=== PATIENT | male | born 1945 | race Caucasian/White ===

== ENCOUNTER 2017-11-15 00:13 | Observation (INO) | payer MEDICARE, OTHER ==
[2017-11-15] MEDS ORDERED: NS 0.9% 1000 ML*IV.FLUID IV ONE (00:27)
[2017-11-15 01:08] LABS: Urine Appearance Clear; Urine Blood 3+ (Negative); Urine Color Yellow; Urine Ketones Negative (Negative); Urine Protein 2+(100 mg/dL) (Negative); Urine Specific Gravity 1.031 (1.010-1.030); Urine Urobilinogen Negative (Negative)
[2017-11-15 01:14] LABS: ABS Basophils 0 10^3/ul (0-0.2); ABS Eosinophils 0 10^3/ul (0-0.6); ABS Lymphocytes 0.3 10^3/ul (1.0-4.8); ABS Monocytes 0.7 10^3/ul (0-0.8); ABS Neutrophils 6.5 10^3/ul (1.5-7.7); ABS Nucleated RBC 0 10^3/ul; Eosinophil % 0 % (0-6); Hematocrit 42 % (42-52); Lymphocyte % 3.5 % (25-47); Mean Corpuscular HGB Conc 36 g/dl (31-36); Mean Corpuscular Hemoglobin 31 pg (27-31); Mean Corpuscular Volume 88 fL (80-94); Mean Platelet Volume 6.7 um3 (7.4-10.4); Nucleated Red Blood Cells % 0.1; Platelet Count 160 10^3/ul (150-450); Red Cell Distribution Width 14 % (10.5-15); White Blood Count 7.5 10^3/ul (3.5-10.8)
[2017-11-15 01:24] LABS: INR 1.1 (0.77-1.02)
[2017-11-15 01:33] LABS: EGFR Non-African American 62.3 (>60)
[2017-11-15] MEDS ORDERED: Ketorolac INJ* 30 MG/ML 1 ML VIAL IV PUSH ONE (01:37)
[2017-11-15] MEDS ORDERED: Acetaminophen TAB* 325 MG PO ONE (01:38)
[2017-11-15] MEDS ORDERED: Piperacillin/Tazobac ADVAN(*) 3.375 GM in NS 0.9% 100 ML* 100 ML IVPB ONE (01:38)
[2017-11-15] MEDS ORDERED: Levofloxacin 750 MG IVPREMIX(* 750 MG/150 ML BAG IVPB ONE (01:38)
--- NOTE | 2017-11-15 03:56 | ED ---
Deja Castle Jade, scribed for Luc Anthony MD on 11/15/17 at 0145 . HPI Febrile Illness - HPI Summary HPI Summary: Pt is a 72 y/o male who presents to the ED c/o febrile illness. As per , pt had a high fever of 103 degrees, has SOB while sleeping, and is delirius. He had a CT scan w/ contrast today, and became jittery 3 hours later. Pt also complains of chills, weakness, and neck pain with movement. He denies any dysuria, sore throat, or runny nose. Pt has a PMHx of HTN and colon cancer, but denies any DM. - History of Current Complaint Chief Complaint: EDFever Time Seen by Provider: 11/15/17 01:17 Hx Obtained From: Patient, Family/Chef Concierge - Onset/Duration: Still Present Timing: Constant Current Severity: None Pain Intensity: 0 Pain Scale Used: 0-10 Numeric Aggravating Factors: Nothing Alleviating Factors: Nothing Associated Signs and Symptoms: Altered Mental Status, Myalgia - Neck pain, Recent Surgery - partial colectomy, SOB - Allergy/Home Medications Allergies/Adverse Reactions: Allergies Allergy/AdvReac Type Severity Reaction Status Date / Time No Known Allergies Allergy Verified 11/15/17 00:17 PMH/Surg Hx/FS Hx/Imm Hx Endocrine/Hematology History: Denies: Hx Diabetes Cardiovascular History: Reports: Hx Hypertension - Cancer History Cancer Type, Location and Year: Colon cancer Infectious Disease History: No Infectious Disease History: Denies: Traveled Outside the [place] in Last 30 Days - Family History Known Family History: Positive: Cardiac Disease - [place] - Social History Alcohol Use: Occasionally Substance Use Type: Reports: None Smoking Status (MU): Former Smoker Review of Systems Positive: Fever, Chills, Other - Delirius, generalized weakness Negative: Sore Throat, Nasal Discharge Positive: Shortness Of Breath Negative: dysuria Positive: Other - Pain in back of neck with movement All Other Systems Reviewed And Are Negative: Yes Physical Exam - Summary Physical Exam Summary: Appearance: Well appearing, no pain distress Skin: reflects adequate perfusion, hot and flushed Head/face: normal Eyes: EOMI, TANK ENT: normal Neck: supple, non-tender Respiratory: breath sounds present, fine crackles in left base, no wheezes Cardiovascular: pulses symmetrical, tachycardic but regular rhythm Abdomen: non-tender, soft. Midline surgical scar Bowel Sounds: present Musculoskeletal: normal, strength/ROM intact Neuro: normal, sensory motor intact, A&Ox3 Triage Information Reviewed: Yes Vital Signs On Initial Exam: Initial Vitals Temp Pulse Resp BP Pulse Ox 103.8 F 114 18 166/88 96 11/15/17 00:14 11/15/17 00:14 11/15/17 00:14 11/15/17 00:14 11/15/17 00:14 Vital Signs Reviewed: Yes Diagnostics - Vital Signs Vital Signs Temp Pulse Resp BP Pulse Ox 11/15/17 01:00 99 96 11/15/17 00:57 102 176/83 97 11/15/17 00:33 103 F 11/15/17 00:29 108 184/95 93 11/15/17 00:27 109 196/118 93 11/15/17 00:14 103.8 F 114 18 166/88 96 - Laboratory Lab Results: Lab Results 11/15/17 11/15/17 11/15/17 Range/Units 00:48 00:48 00:48 WBC 7.5 (3.5-10.8) 10^3/ul RBC 4.80 (4.00-5.40) 10^6/ul Hgb 15.0 (14.0-18.0) g/dl Hct 42 (42-52) % MCV 88 (80-94) fL MCH 31 (27-31) pg MCHC 36 (31-36) g/dl RDW 14 (10.5-15) % Plt Count 160 (150-450) 10^3/ul MPV 6.7 L (7.4-10.4) um3 Neut % (Auto) 86.7 H (38-83) % Lymph % (Auto) 3.5 L (25-47) % [place] % (Auto) 9.5 H (0-7) % Eos % (Auto) 0 (0-6) % Baso % (Auto) 0.3 (0-2) % Absolute Neuts (auto) 6.5 (1.5-7.7) 10^3/ul Absolute Lymphs (auto) 0.3 L (1.0-4.8) 10^3/ul Absolute Monos (auto) 0.7 (0-0.8) 10^3/ul Absolute Eos (auto) 0 (0-0.6) 10^3/ul Absolute Basos (auto) 0 (0-0.2) 10^3/ul Absolute Nucleated RBC 0 10^3/ul Nucleated RBC % 0.1 INR (Anticoag Therapy) 1.10 H (0.77-1.02) APTT 30.4 (26.0-36.3) seconds Sodium 137 (135-145) mmol/L Potassium 3.9 (3.5-5.0) mmol/L Chloride 103 (101-111) mmol/L Carbon Dioxide 24 (22-32) mmol/L Anion Gap 10 (2-11) mmol/L BUN 25 H (6-24) mg/dL Creatinine 1.15 (0.67-1.17) mg/dL Est GFR ( Amer) 75.4 (>60) Est GFR (Non-Af Amer) 62.3 (>60) BUN/Creatinine Ratio 21.7 H (8-20) Glucose 120 H (70-100) mg/dL Lactic Acid (0.5-2.0) mmol/L Calcium 9.1 (8.6-10.3) mg/dL Total Bilirubin 0.80 (0.2-1.0) mg/dL AST 24 (13-39) U/L ALT 20 (7-52) U/L Alkaline Phosphatase 129 H (34-104) U/L Troponin I Pending C-Reactive Protein 48.48 H (<8.01) mg/L Total Protein 6.7 (6.4-8.9) g/dL Albumin 4.0 (3.2-5.2) g/dL Globulin 2.7 (2-4) g/dL Albumin/Globulin Ratio 1.5 (1-3) Urine Color Urine Appearance Urine pH (5-9) Ur Specific [place] (1.010-1.030) Urine Protein (Negative) Urine Ketones (Negative) Urine Blood (Negative) Urine Nitrate (Negative) Urine Bilirubin (Negative) Urine Urobilinogen (Negative) Ur Leukocyte Esterase (Negative) Urine WBC (Auto) (Absent) Urine RBC (Auto) (Absent) Ur Squamous Epith Cells (Absent) Urine Bacteria (Absent) Urine Glucose (Negative) 06/28/18 06/28/18 Range/Units 00:48 00:50 WBC (3.5-10.8) 10^3/ul RBC (4.00-5.40) 10^6/ul Hgb (14.0-18.0) g/dl Hct (42-52) % MCV (80-94) fL MCH (27-31) pg MCHC (31-36) g/dl RDW (10.5-15) % Plt Count (150-450) 10^3/ul MPV (7.4-10.4) um3 Neut % (Auto) (38-83) % Lymph % (Auto) (25-47) % [place] % (Auto) (0-7) % Eos % (Auto) (0-6) % Baso % (Auto) (0-2) % Absolute Neuts (auto) (1.5-7.7) 10^3/ul Absolute Lymphs (auto) (1.0-4.8) 10^3/ul Absolute Monos (auto) (0-0.8) 10^3/ul Absolute Eos (auto) (0-0.6) 10^3/ul Absolute Basos (auto) (0-0.2) 10^3/ul Absolute Nucleated RBC 10^3/ul Nucleated RBC % INR (Anticoag Therapy) (0.77-1.02) APTT (26.0-36.3) seconds Sodium (135-145) mmol/L Potassium (3.5-5.0) mmol/L Chloride (101-111) mmol/L Carbon Dioxide (22-32) mmol/L Anion Gap (2-11) mmol/L BUN (6-24) mg/dL Creatinine (0.67-1.17) mg/dL Est GFR ( Amer) (>60) Est GFR (Non-Af Amer) (>60) BUN/Creatinine Ratio (8-20) Glucose (70-100) mg/dL Lactic Acid 1.4 (0.5-2.0) mmol/L Calcium (8.6-10.3) mg/dL Total Bilirubin (0.2-1.0) mg/dL AST (13-39) U/L ALT (7-52) U/L Alkaline Phosphatase (34-104) U/L Troponin I C-Reactive Protein (<8.01) mg/L Total Protein (6.4-8.9) g/dL Albumin (3.2-5.2) g/dL Globulin (2-4) g/dL Albumin/Globulin Ratio (1-3) Urine Color Yellow Urine Appearance Clear Urine pH 5.0 (5-9) Ur Specific [place] 1.031 H (1.010-1.030) Urine Protein 2+(100 mg/dl) A (Negative) Urine Ketones Negative (Negative) Urine Blood 3+ A (Negative) Urine Nitrate Negative (Negative) Urine Bilirubin Negative (Negative) Urine Urobilinogen Negative (Negative) Ur Leukocyte Esterase Negative (Negative) Urine WBC (Auto) Trace(0-5/hpf) (Absent) Urine RBC (Auto) 3+(>10/hpf) A (Absent) Ur Squamous Epith Cells Present A (Absent) Urine Bacteria Absent (Absent) Urine Glucose Negative (Negative) Result Diagrams: 11/15/17 00:48 11/15/17 00:48 Lab Statement: Any lab studies that have been ordered have been reviewed, and results considered in the medical decision making process. - Radiology CXR Xray Interpretation: Positive (See Comments) - Left basilar infiltrate. Pending offical radiology report. Radiology Interpretation Completed By: ED Physician - EKG 00:28 Cardiac Rate: Tachycardia - 105 bpm EKG Rhythm: Sinus Rhythm ST Segment: Non-Specific - With minimal depression V4-V6 Ectopy: PACs Course/Dx - Course Course Of Treatment: Patient with high fever developed throughout the day today and mild cough. Infiltrate on x-ray. WBC is nonelevated. CRP is elevated. Double antibiotics, IV fluids and consult placed a hospitalist. Hospitalist evaluated in the ER and will admit. Patient improving through stay. - Diagnoses Provider Diagnoses: Sepsis, Left lower lobe pneumonia, Delirium - Critical Care Time Critical Care Time: 30-74 min - Critical care time is exclusive of separately billable procedures Discharge - Sign-Out/Discharge Documenting (check all that apply): Discharge/Admit/Transfer - Admit - Discharge Plan Condition: Fair Disposition: ADMITTED TO [facility] Referrals: Erica Kaur MD [Primary Care Provider] - - Billing Disposition and Condition Condition: FAIR Disposition: Admitted to [facility] The documentation as recorded by the Deja alex Jade accurately reflects the service I personally performed and the decisions made by me, Luc Anthony MD.
[2017-11-15 05:11] LABS: RBC Parasite Smear No Parasites Seen (No Parasite)
--- NOTE | 2017-11-15 06:49 | HP ---
H&P (Free Text) History and Physical: PCP: Nathaniel Kaur MD Date/Time: 11/15/2017 0411 CC: fever HPI: Mr Andrea is a 72YO male HX stg IIa colon CA & HTN who went to [facility] yesterday AM for his initial 6month surveillance CTs. Upon returning home he developed generalized myalgias, sweats, mild SOB, and spiked a temperature of 103F associated with intermittent confusion which resolved with defervescence. He reports a mild dry cough for the past week associated with light wheezing. Today he has also had some mild nausea without emesis, a mildly unsteady gait, and some light-headedness, but no diarrhea, chest pain, abdominal pain, or other issues. He has had a headache with is unusual for him, but no change in pain with nuchal mobility. Of note, he & his returned from [facility] ~5 weeks ago. He has had no known sick contacts. 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 Father passed at 89 w/ prostate CA. ROS: as above, otherwise reviewed and all were negative vitals: Vital Signs Temp 37.6 C 11/15/17 06:22 Pulse 87 11/15/17 06:22 Resp 17 11/15/17 06:22 BP 166/81 11/15/17 06:22 Pulse Ox 100 11/15/17 06:22 Intake & Output 11/14/17 11/14/17 11/15/17 11:59 23:59 11:59 Intake Total 3580 Output Total 0 Balance 3580 Weight 111.13 kg Intake: IV Fluids 3580 Oral 0 Output: Urine 0 Other: # Bowel Movements 0 Constitutional: NAD, normally developed, obese white male HEENM: atraumatic; sclera/conjunctiva: anicteric/moderate OU conjunctival injection; hearing: clinically intact; oropharynx: clear, mucosa moist Neck: soft tissue: no nuchal rigidity; thyroid: normal Pulmonary: clear to auscultation bilaterally, good aeration, no accessory muscle use CV: RR/RR, normal S1S2, no carotid bruit, no jugular venous distention, 2+ B DP/ PT, no edema Abdominal: soft, non-distended, non-tender, no rebound/guarding/rigidity, normoactive bowel sounds, no hepatosplenomegaly or masses, no costovertebral angle tenderness Musculoskeletal: general: grossly intact, non-tender Integumental: normal appearance and texture of exposed skin Psychiatric orientation: AA&O to PPS affect: calm mood: cooperative, pleasant eye contact: good content: reliable responses: timely insight: good Testing: Lab Results 11/15/17 11/15/17 11/15/17 Range/Units 00:48 00:48 00:48 WBC 7.5 (3.5-10.8) 10^3/ul RBC 4.80 (4.00-5.40) 10^6/ul Hgb 15.0 (14.0-18.0) g/dl Hct 42 (42-52) % MCV 88 (80-94) fL MCH 31 (27-31) pg MCHC 36 (31-36) g/dl RDW 14 (10.5-15) % Plt Count 160 (150-450) 10^3/ul MPV 6.7 L (7.4-10.4) um3 Neut % (Auto) 86.7 H (38-83) % Lymph % (Auto) 3.5 L (25-47) % [place] % (Auto) 9.5 H (0-7) % Eos % (Auto) 0 (0-6) % Baso % (Auto) 0.3 (0-2) % Absolute Neuts (auto) 6.5 (1.5-7.7) 10^3/ul Absolute Lymphs (auto) 0.3 L (1.0-4.8) 10^3/ul Absolute Monos (auto) 0.7 (0-0.8) 10^3/ul Absolute Eos (auto) 0 (0-0.6) 10^3/ul Absolute Basos (auto) 0 (0-0.2) 10^3/ul Absolute Nucleated RBC 0 10^3/ul Nucleated RBC % 0.1 INR (Anticoag Therapy) 1.10 H (0.77-1.02) APTT 30.4 (26.0-36.3) seconds Sodium 137 (135-145) mmol/L Potassium 3.9 (3.5-5.0) mmol/L Chloride 103 (101-111) mmol/L Carbon Dioxide 24 (22-32) mmol/L Anion Gap 10 (2-11) mmol/L BUN 25 H (6-24) mg/dL Creatinine 1.15 (0.67-1.17) mg/dL Est GFR ( Amer) 75.4 (>60) Est GFR (Non-Af Amer) 62.3 (>60) BUN/Creatinine Ratio 21.7 H (8-20) Glucose 120 H (70-100) mg/dL Lactic Acid (0.5-2.0) mmol/L Calcium 9.1 (8.6-10.3) mg/dL Total Bilirubin 0.80 (0.2-1.0) mg/dL AST 24 (13-39) U/L ALT 20 (7-52) U/L Alkaline Phosphatase 129 H (34-104) U/L Troponin I 0.03 (<0.04) ng/mL C-Reactive Protein 48.48 H (<8.01) mg/L Total Protein 6.7 (6.4-8.9) g/dL Albumin 4.0 (3.2-5.2) g/dL Globulin 2.7 (2-4) g/dL Albumin/Globulin Ratio 1.5 (1-3) Urine Color Urine Appearance Urine pH (5-9) Ur Specific [place] (1.010-1.030) Urine Protein (Negative) Urine Ketones (Negative) Urine Blood (Negative) Urine Nitrate (Negative) Urine Bilirubin (Negative) Urine Urobilinogen (Negative) Ur Leukocyte Esterase (Negative) Urine WBC (Auto) (Absent) Urine RBC (Auto) (Absent) Ur Squamous Epith Cells (Absent) Urine Bacteria (Absent) Urine Glucose (Negative) 11/15/17 11/15/17 Range/Units 00:48 00:50 WBC (3.5-10.8) 10^3/ul RBC (4.00-5.40) 10^6/ul Hgb (14.0-18.0) g/dl Hct (42-52) % MCV (80-94) fL MCH (27-31) pg MCHC (31-36) g/dl RDW (10.5-15) % Plt Count (150-450) 10^3/ul MPV (7.4-10.4) um3 Neut % (Auto) (38-83) % Lymph % (Auto) (25-47) % [place] % (Auto) (0-7) % Eos % (Auto) (0-6) % Baso % (Auto) (0-2) % Absolute Neuts (auto) (1.5-7.7) 10^3/ul Absolute Lymphs (auto) (1.0-4.8) 10^3/ul Absolute Monos (auto) (0-0.8) 10^3/ul Absolute Eos (auto) (0-0.6) 10^3/ul Absolute Basos (auto) (0-0.2) 10^3/ul Absolute Nucleated RBC 10^3/ul Nucleated RBC % INR (Anticoag Therapy) (0.77-1.02) APTT (26.0-36.3) seconds Sodium (135-145) mmol/L Potassium (3.5-5.0) mmol/L Chloride (101-111) mmol/L Carbon Dioxide (22-32) mmol/L Anion Gap (2-11) mmol/L BUN (6-24) mg/dL Creatinine (0.67-1.17) mg/dL Est GFR ( Amer) (>60) Est GFR (Non-Af Amer) (>60) BUN/Creatinine Ratio (8-20) Glucose (70-100) mg/dL Lactic Acid 1.4 (0.5-2.0) mmol/L Calcium (8.6-10.3) mg/dL Total Bilirubin (0.2-1.0) mg/dL AST (13-39) U/L ALT (7-52) U/L Alkaline Phosphatase (34-104) U/L Troponin I (<0.04) ng/mL C-Reactive Protein (<8.01) mg/L Total Protein (6.4-8.9) g/dL Albumin (3.2-5.2) g/dL Globulin (2-4) g/dL Albumin/Globulin Ratio (1-3) Urine Color Yellow Urine Appearance Clear Urine pH 5.0 (5-9) Ur Specific [place] 1.031 H (1.010-1.030) Urine Protein 2+(100 mg/dl) A (Negative) Urine Ketones Negative (Negative) Urine Blood 3+ A (Negative) Urine Nitrate Negative (Negative) Urine Bilirubin Negative (Negative) Urine Urobilinogen Negative (Negative) Ur Leukocyte Esterase Negative (Negative) Urine WBC (Auto) Trace(0-5/hpf) (Absent) Urine RBC (Auto) 3+(>10/hpf) A (Absent) Ur Squamous Epith Cells Present A (Absent) Urine Bacteria Absent (Absent) Urine Glucose Negative (Negative) ECG, personally reviewed: sinus tachycardia rate 105, inverted T-waves w/ mild ST depression V4-6, I; new compared to tracing dated 01/30/2007 CXR, personally reviewed: patchy bibasilar infiltrates, no comparison Impression: 72M HX stg IIa colon CA presents with fever likely 2nd bibasilar pneumonia, but potentially a tropical infection from [facility] DIAGNOSIS & PLAN Primary fever ? bibasilar pneumonia vs tropical infection : peripheral smear for malaria : blood & sputum CXs : given IV piperacillin/tazobactam & levofloxacin in ED, will continue on levofloxacin : consider ID consult in AM : supportive care Secondary colon CA stg IIa : continue outpatient surveillance HX ECG showing "lateral ischemia" : present on today's ECG & asymptomatic : consider discussing with PCP as she is reportedly aware & cleared him colon resection in light of it HTN : monitor hypothroidism : continue levofloxacin OA R knee : continue meloxicam Admission Rational: observation for fever of unknown origin DVTp: SCDs & heparin SQ Code Status: full HCP:
[2017-11-15] MEDS ORDERED: Levothyroxine TAB* 50 MCG TAB PO SCH (07:00)
[2017-11-15] MEDS ORDERED: Acetaminophen TAB* 325 MG PO PRN (07:23)
[2017-11-15] MEDS ORDERED: Albuterol 2.5 MG/3 ML NEB.SOL* (0.083%) INH PRN (07:23)
[2017-11-15] MEDS ORDERED: Melatonin 3 MG TAB PO PRN (07:24)
[2017-11-15] MEDS ORDERED: NS 0.9% 1000 ML* 1,000 ML IV SCH (07:30)
--- NOTE | 2017-11-15 08:10 | RAD ---
INDICATION: Fever COMPARISON: None TECHNIQUE: An AP portable view obtained at 0045 hours is submitted. FINDINGS: Bones/Soft Tissues: There are no acute bony findings. Cardiomediastinal: The cardiomediastinal silhouette is normal. Lungs: There is mild linear change left lung base with elevation left hemidiaphragm. The findings most consistent with atelectasis, less likely developing infiltrate. Suggest follow-up as indicated.. Pleura: There may be a tiny left-sided effusion. Other: None IMPRESSION: Linear change left lung base consistent with atelectasis, less likely infiltrate.
[2017-11-15 08:55] LABS: ABS Basophils 0 10^3/ul (0-0.2); ABS Eosinophils 0 10^3/ul (0-0.6); ABS Lymphocytes 0.4 10^3/ul (1.0-4.8); ABS Monocytes 0.9 10^3/ul (0-0.8); ABS Neutrophils 7.1 10^3/ul (1.5-7.7); ABS Nucleated RBC 0 10^3/ul; Eosinophil % 0 % (0-6); Hematocrit 41 % (42-52); Hemoglobin 14.1 g/dl (14.0-18.0); Lymphocyte % 4.3 % (25-47); Mean Corpuscular HGB Conc 35 g/dl (31-36); Mean Corpuscular Hemoglobin 31 pg (27-31); Mean Corpuscular Volume 89 fL (80-94); Mean Platelet Volume 6.7 um3 (7.4-10.4); Nucleated Red Blood Cells % 0; Platelet Count 143 10^3/ul (150-450); Red Blood Count 4.55 10^6/ul (4.00-5.40); Red Cell Distribution Width 15 % (10.5-15); White Blood Count 8.4 10^3/ul (3.5-10.8)
[2017-11-15] MEDS ORDERED: MELOXICAM 10 MG PO SCH (09:00)
[2017-11-15] MEDS ORDERED: Metoprolol Tartrate TAB* 25 MG PO SCH (09:00)
[2017-11-15] MEDS ORDERED: Docusate CAP* 100 MG PO SCH (09:00)
[2017-11-15 09:04] LABS: INR 1.2 (0.77-1.02)
[2017-11-15 09:05] LABS: EGFR Non-African American 64.3 (>60)
--- NOTE | 2017-11-15 12:39 | CONS ---
CONSULTATION REPORT: DATE OF CONSULT: 11/15/17 REQUESTING PHYSICIAN: Dr. Flores. CONSULTING SERVICE: Infectious Disease. REASON FOR CONSULTATION: Fever. IMPRESSION: 1. Fever, myalgia, headache, came on suddenly last night and included encephalopathy according to the patient's . This morning he is left with some sweats, fever, headache but he and his agree he is back to his baseline mental status. As to a source, his blood cultures are negative at this point, his x-ray is unrevealing, he has no respiratory symptoms. He has no nuchal rigidity or photophobia to suggest meningitis. He has no abdominal symptoms or diarrhea. No rash or lymphadenopathy. He had recently a CT contrast dye exposure, could be an allergic reaction to that, mental status change that is described makes that seem less likely. He could have a tick- borne infection at this time of the year including Lyme or anaplasma. They assure me it is not a possibility as they always check for ticks. I did explain that the nymph form of the tick which spreads most infection is almost impossible to detect and Lyme may not always have a rash at the time of initial presentation. His urinalysis showed blood but no white cells. He has no urinary symptoms. Further in the differential, there are tropical infections to consider given his time in [facility], where I do not think there is malaria but there is chikungunya and dengue. I think they are about 5 weeks out from that trip, so probably a little too late for that presentation, though still a possibility. They do spend time in [facility], so a late presentation of malaria is a consideration. Mosquito borne in this area at this time here includes West Nile, also self limited. He is hemodynamically stable, feeling a bit better. His situation is delicate in that the patient and his feel that everything that we are doing here is unnecessary. They have contacted his surgeon at [facility] and they say that he told them that [facility] is notorious for unnecessary testing and keeping people for too long and that this is all a reaction to the contrast dye he had yesterday. While that is a possibility, I did explain to them I think it is important that we do a thorough evaluation to be sure there is no other treatable cause of his symptoms. They are comfortable with that but will not stay any longer to wait for the blood culture results. 2. Stage II colon cancer, treated with pressure colectomy in [address] yesterday reportedly shows no persistent disease. 3. Hypothyroidism. RECOMMENDATIONS: Doxycycline 100 mg by mouth twice daily to cover for Lyme and tick-borne infections. I explained that Lyme serology if it is Lyme is not helpful in the acute illness and cannot be used to rule out the infection. A tick-borne PCR panel is helpful for anaplasmosis. I asked him to return to the hospitalist if he has return of worsening fever, does not continue to improve or if his notes that he is confused again. I did explain to them the blood cultures have not returned yet and that if they return positive, he would likely be called to come back to the hospital, which I would recommend he does. I asked him to follow up with Dr Kaur and with me. HISTORY OF PRESENT ILLNESS: This is a 72-year-old man admitted yesterday with fever and change in mental status. He had had a CT of the chest, abdomen and pelvis in [place] and followup colon cancer evaluation. That had been treated by partial colectomy. No chemotherapy or radiation. CT was apparently clear. Yesterday afternoon, he developed fever, headache, myalgia, some mild neck stiffness. His noted him to be intermittently confused. He was seen in the emergency room overnight. He had no white count. He had a lymphopenia. He had a fever of 40 degrees Celsius. He is tachycardic at 220 beats per minute , respiratory rate in the 20s, hypertensive, maintaining normal oxygen saturations on room air. He had fluids, Levaquin and Zosyn. Chest x-ray showed slight atelectasis at the left base. Overnight, his mental status apparently improved. He was febrile off and on. He soaked the sheet through a couple of times. This morning, his platelets are slightly low at 143,000, creatinine 1.1. Urinalysis showed blood. LFTs were normal other than an alkaline phosphatase of 129. CRP was 48. Blood cultures are negative at this point. Urine culture was negative as well. This morning he is having a mild headache, which is improved from last night. He has got no neck stiffness. He has got no rash or joint pain, does have diffuse myalgia which is improved. He does spend a lot of time outdoors where they live in [place] and do tick checks regularly. Last travel was to [facility] a few weeks ago, did not become ill while he was there. They were in [place] a few months ago, was not ill while there. PAST MEDICAL HISTORY: 1. Stage II colon cancer treated with resection, partial colectomy. 2. Hypertension. 3. Hypothyroidism. 4. Osteoarthritis, right knee. MEDICATIONS: 1. Tylenol. 2. Albuterol. 3. Docusate. 4. Heparin subcutaneous injection. 5. Levofloxacin 750 mg IV daily. 6. Levothyroxine. 7. Melatonin. 8. Metoprolol. 9. Omeprazole. ALLERGIES: No known drug allergies. FAMILY HISTORY: No recurrent infections or tuberculosis. 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 REVIEW OF SYSTEMS: All negative to a 14-point review of systems except as noted above. PHYSICAL EXAM: Vital Signs: Temperature 37.2, heart rate 87, respiratory rate 17, blood pressure 166/81, oxygen saturation 100% on room air. In general, he is awake and not in distress. Neurologic: He is oriented x3. Follows all commands. Moves all extremities. HEENT: There is mild bilateral conjunctival injection. There is no thrush. Neck is supple without mass. Lymph Nodes: There is no cervical, supraclavicular, inguinal, axillary, or epitrochlear lymphadenopathy. Heart has regular rate and rhythm without murmurs, rubs, or gallops. Lungs are clear to auscultation bilaterally. Abdomen: Soft, nontender, nondistended. There are bowel sounds present. Skin: There is no rash or splinter hemorrhages. Musculoskeletal: There is no spine tenderness to palpation. No joint synovitis. DIAGNOSTIC STUDIES/LAB DATA: White blood cell count 8, hemoglobin 14, platelets 143,000. Lymphocyte count is 400, creatinine 1.1. Urinalysis shows blood and protein. Please see impressions and recommendations outlined above which I have discussed with Dr. Flores. Thanks for asking me to see Mr. Andrea in consultation. [id number]/[facility] #: [id number] MTDD
[2017-11-15 13:44] VITALS: BP 150/77
[2017-11-16] MEDS ORDERED: Levofloxacin 750 MG IVPREMIX(* 750 MG/150 ML BAG IVPB SCH (01:30)
[2017-11-16] MEDS ORDERED: Omeprazole CAP* 20 MG PO SCH (06:00)
[2017-11-16] MEDS ORDERED: Heparin VIAL(*) 5000 UNITS/ML VIAL (FIVE THOUSAND) SUBCUT SCH (06:00)
--- NOTE | 2017-11-16 06:33 | DS ---
CC: Dr. Lake; Dr. Luc Anthony; Dr. Erica Kaur DISCHARGE SUMMARY: DATE OF ADMISSION: DATE OF DISCHARGE: 11/15/17 DISCHARGE DIAGNOSES: As follows: 1. Fever, unknown etiology at this time; the patient refused any further workup as an inpatient and adamant to go back to his primary care physician's care in the outpatient road. 2. Uncontrolled hypertension. 3. History of colon cancer, stage IIA. 4. History of hypothyroidism. 5. History of osteoarthritis of the right knee. DISCHARGE MEDICATIONS: As follows: 1. Tylenol 650 mg p.o. q.6 p.r.n. 2. Doxycycline 100 mg p.o. b.i.d. for 14 days. 3. Synthroid 50 mcg p.o. daily. 4. Meloxicam 10 mg p.o. daily. 5. Omeprazole 20 mg p.o. daily. HISTORY OF PRESENT ILLNESS/HOSPITAL COURSE: The patient is a 72-year-old gentleman with history of stage IIA colon cancer, hypertension and hypothyroidism who presented to [facility] yesterday morning for his initial [address] for his colon cancer. Upon returning home , however, he developed generalized myalgias, sweats, mild shortness of breath and spiked temperature of 103 degrees Fahrenheit associated with intermittent confusion, which resolved with defervescence. He reported a mild dry cough for the past week associated with light wheezing, however the day of his admission he has had some mild nausea without emesis and a mildly unsteady gait and some lightheadedness without any diarrhea, chest pain or abdominal pain. He also mentioned that he and his returned from [facility] about 5 weeks ago and has had no sick contacts. In my initial evaluation of the patient this morning upon taking up his case, the patient and his were very adamant to leave the hospital and felt that he has been unnecessarily admitted. Furthermore, he mentions that they have contacted his oncologist at [place] and was allegedly told that [facility] is notorious for unnecessary testing and keeping people for too long and that this his fever is a reaction to the contrast dye he had yesterday. I further explained to both Jose and his that although this is possibility that other differentials will need to be ruled out given his line of work and travel as well as other atypical infections that may arise during this time of the year. He had been advised to at least stay in the hospital for 1 to 2 days observation stay to see if anything would grow in his cultures. However, despite all of the risks and benefits explained to the patient in plain terms, he wanted to go back home and follow up as an outpatient. Upon subsequent inquiry as to why he feels the need to go home at this time, his then interjected and said it is "all about anxiety." When further enquiry transpired, she then mentions that she is the one that is anxious, but not the patient and that she has a prior appointment to go to an archeological field site out of the country the following day. I then further inquired if the patient, Jose, himself would be accompanying her and the patient responded in the negative. I have advised him not to leave the country and reiterated the risk of being discharged immediately without completing his workup. I have then subsequently contacted Dr. Amador, who reiterated the same opinion as I have previously given and please see his dictated note and consultation. Furthermore, he was noted to have diaphoresis and mild conjunctivitis that may point to a tick-borne or atypical or viral infection. This was brought to his attention to no avail, where patient further minimized his symptoms. Indeed, he brushes aside his diaphoresis as something "normal" for him since he is wearing a blanket. I then explained to him that the other patient I had seen earlier who had thicker blankets are not sweating as much as he does. The patient had been advised against being discharged today given the many possibilities that has yet to be ruled out prior to his discharge as explicitly explained by Dr. Amador's consultation note. Risks and benefits of today's discharge was explained to the patient and at least 3 times prior to his discharge and in fact the patient was found to have fever of around 101 degrees Fahrenheit prior to him walking out of the hospital as noted to me by his nurse. Despite this, he still wanted to leave and hence, we will defer. Given above, it was made clear to the patient that he will need to contact his primary care physician soon after discharge. In addition, he also has been informed of his uncontrolled hypertension and when Metoprolol was initially prescribed for him earlier in the morning, he appeared adamant and irritated that this was done mentioning that his doctors in [place] are waiting for some type of procedure to be done and subsequently will reassess him whether he will need an antihypertensive medication. I have explained to him that this does not seem to make sense as he is at high risk for cardiovascular problems as well as a stroke. Given his resistance to any of my advice, I have not prescribed him any antihypertensive medications prior to his discharge and instead I have advised that he speak to his primary care physician the moment that he gets discharged to see whether this plan that he remembers has changed since he seems disinterested to be followed up by our team. In the meantime, I have advised him to lose some weight and to start calculating his daily salt intake, more specifically he has been advised to try to have a salt intake of less than 2 g of sedum per day, which on the interim can at least mitigate some of the dangerous of his uncontrolled hypertension. Once again, he was advised to follow up in-person with his PCP immediately on discharge and to follow up with Dr. Amador's office in 1 week, who advised 2 weeks of doxycycline therapy. He has been advised not to go out into the hot son into the archeological field with this medication given it can cause significant burn and rash. He mentions that he understands above. This instruction was also reiterated in the prescription that was sent electronically to his pharmacy. Furthermore, he was given Dr. Amador's office number at [phone] to confirm his appointment. He was then further advised that if he is feeling unwell upon discharge, to call his PCP right away and if both of them feel that he needs to be evaluated in person, however if his PCP would not be able to evaluate him immediately, to contact the [facility] at [phone]. He also was concerned about someone mentioning to him at or around the time of admission that he may have pneumonia. I have explained to him that I have reviewed his chest x-ray and there was no clear evidence of pneumonia, although there is some atelectasis with no consistent signs of consolidation and certainly his respiratory rate and saturations as well as his white count do not seem to suggest that he has some form of pneumonia. However, it is possible that he has some form of viral infection or an atypical infection that will need to be ruled out and hence, my advice as well as Dr. Amador's advice for him to stay. He was advised that atelectasis means that he would likely need to take in deeper breath, especially given he is overweight, which can sometimes cause restrictive lung disease and restriction of further lung expansion that can cause atelectasis. Although, there was some concern in the past that atelectasis by itself can cause fever, newer studies, however, do not seem to support this previous dogmatic presumption and unlikely to explain a high fever of 102 degrees Fahrenheit. He is aware of the above concerns of the hospitalist seen and he was also advised to take his medications as prescribed. PHYSICAL EXAMINATION: Revels the most recent vital signs of records with 101.4 degrees Fahrenheit prior to his discharge as mentioned, 90 beats per minute heart rate, 20 per minute respiratory rate, saturating at 96% at room air, blood pressure of 150/77 from previous of 166/81. General Appearance: The patient is awake, oriented x3, diaphoretic. The patient was observed to have some form of conjunctivitis and diaphoresis. Again, another one of the physical signs and symptoms that was more concerning despite his and his 's protest of being admitted unnecessarily. HEENT: Normocephalic, atraumatic. PERRLA. Extraocular muscles intact. Negative for icterus. Positive conjunctivitis bilateral. Heart: S1, S2 within normal limits. Regular rate and rhythm. No murmurs, rubs and gallops. Chest: Clear to auscultation bilaterally. Good air entry. No wheezes, rales and rhonchi. Abdomen is soft, nondistended, nontender. Normoactive bowel sounds x4. Extremities: No cyanosis, clubbing. No edema. Psychiatric: No active psychosis, depression, suicidal or homicidal ideations. Skin is warm to touch. TIME SPENT: The total time spent evaluating the patient, reviewing pertinent data and appropriate documentation is greater than 30 minutes. [id number]/[facility] #: [id number] [facility]WORK[facility]
== END 2017-11-15 15:10 | disposition home or self-care (01) ==
LOC: ED 00:13 → MED 04:16
PROVIDERS: ADMIT Hospitalist; ATTEND Student in an Organized Health Care Education/Training Program
DX: R50.9 Fever, unspecified (principal); R91.8 Other nonspecific abnormal finding of lung field; R42 Dizziness and giddiness; R11.0 Nausea; I10 Essential (primary) hypertension; Z85.038 Personal history of other malignant neoplasm of large intestine; E03.9 Hypothyroidism, unspecified; M17.11 Unilateral primary osteoarthritis, right knee; R06.02 Shortness of breath; I49.1 Atrial premature depolarization; Z79.899 Other long term (current) drug therapy; Z87.891 Personal history of nicotine dependence; M79.1 Myalgia
CPT/HCPCS: 36415; 71045; 80048; 80053; 81003; 81015; 83605; 84484; 85025; 85610; 85730; 86140; 87015; 87040; 87086; 87207; 87798; 93005; 96365; 96368; 96375; 99284; A9270-GY; G0378; J1885; J2543